=== PATIENT | male | born 1940 | race Caucasian/White ===

== ENCOUNTER 2022-06-20 06:53 | Day surgery (SDC) | payer MEDICARE ==
[2022-06-16 10:48] VITALS: BMI 24.3
[2022-06-20] MEDS ORDERED: SODIUM CHLORIDE 0.9% 500 ML 500 ML IV ONE (07:04)
[2022-06-20 07:29] LABS: Glucose,Whole Blood 252 mg/dL (70-110)
[2022-06-20] MEDS: BENZOCAINE SPRAY 1 CAN MUCOUS MEM ONE ×2 (07:30→07:40)
[2022-06-20] MEDS: MIDAZOLAM 2 MG/2 ML VIAL IV ONE ×2 (07:41→07:43)
[2022-06-20] MEDS ORDERED: fentaNYL (PF) 50 MCG/1 ML VIAL IV ONE ×2 (07:41→07:43)
[2022-06-20] MEDS ORDERED: MIDAZOLAM 2 MG/2 ML VIAL IV ONE (07:45)
--- NOTE | 2022-06-20 08:07 | P.TEE ---
Description of Procedure(s): Procedure performed: Transesophageal Echocardiogram with color flow doppler, pulsed wave doppler and continuous wave doppler, moderate conscious sedation Moderate conscious sedation: Moderate conscious sedation was supplied with direct supervision of myself using Versed and Fentanyl. Complications: none Indications: Aortic stenosis, LVOT gradient, dyspnea PROCEDURE: After the risks, benefits and alternatives of the above mentioned procedure was explained in detail with the patient, informed consent was obtained. Patient was brought to the lab in a fasting state. Patient was given IV Versed and Fentanyl for sedation. The throat was sprayed with Hurricane to anesthetize the throat. A lubricated Omni probe was then introduced into the esophagus and stomach and multiple views were obtained. 2D echo with color flow doppler, pulsed wave doppler and continuous wave doppler was utilized. Agitated saline bubbles were injected to assess for any intra-atrial shunt. The probe was then removed. Patient tolerated the procedure well. Patient was transferred to the post procedure area in stable and satisfactory condition. FINDINGS: 1. The aortic valve is tricuspid with moderate aortic stenosis with Vmax 2.3m/s. There is no significant LVOT gradient as previously demonstrated on TTE. 2. The mitral valve appears be normal with mild mitral regurgitation. 3. Tricuspid valve with mild tricuspid regurgitation. 4. The interatrial septum is intact. No evidence of PFO. 5. Left atrial appendage is free of clot. 6. Left ventricular ejection fraction is 50-55%. There is moderate concentric LVH with septal thickness 1.7 cm.
[2022-06-20 10:33] VITALS: RESP 16
[2022-06-20 10:36] VITALS: BP 123/62; PULSE 72
== END 2022-06-20 09:37 | disposition home or self-care (01) ==
LOC: CATHCVL 06:53
PROVIDERS: ATTEND Internal Medicine
DX: I35.0 Nonrheumatic aortic (valve) stenosis (principal); I48.0 Paroxysmal atrial fibrillation; I11.0 Hypertensive heart disease with heart failure; E11.9 Type 2 diabetes mellitus without complications; I50.33 Acute on chronic diastolic (congestive) heart failure; I34.0 Nonrheumatic mitral (valve) insufficiency; F17.210 Nicotine dependence, cigarettes, uncomplicated; Z82.49 Family history of ischemic heart disease and other diseases of the circulatory system
CPT/HCPCS: 93312; 93320; 93325; J2250